=== PATIENT | female | born 1970 | race Caucasian/White ===

== ENCOUNTER 2022-06-19 10:49 | Day surgery (SDC) | payer OTHER ==
[~2022-06-19] VITALS: Ht 167.6 cm; Wt 74.1 kg
[2022-06-19 11:20] VITALS: BP 140/61
[2022-06-19] MEDS ORDERED: ESTR1TAB19 PO (11:26)
[2022-06-19] MEDS ORDERED: UBID200C32 PO (11:26)
[2022-06-19] MEDS ORDERED: NORT10CA2 PO (11:26)
[2022-06-19] MEDS ORDERED: LACT1CAP65 PO (11:26)
[2022-06-19] MEDS ORDERED: ROSU40TA22 PO (11:26)
[2022-06-19] MEDS ORDERED: CHOL20002 PO (11:26)
[2022-06-19] MEDS ORDERED: ONDA-104 PO (11:26)
[2022-06-19] MEDS ORDERED: SUMA100T16 PO (11:26)
[2022-06-19] MEDS ORDERED: vancomycin 1,500 MG in NS 300ml IV soln IV ONE (11:39)
[2022-06-19] MEDS ORDERED: ceFAZolin inj. 2,000 MG in dextrose 5%-water 100 ML IV ONE (11:39)
[2022-06-19 11:51] LABS: BASOPHILS % (AUTO) 0.3 % (0-1); EOSINOPHILS # (AUTO) 0.1 X10'3 (0-0.9); EOSINOPHILS % (AUTO) 1.2 % (0-6); HEMATOCRIT 40.5 % (35.0-45.0); HEMOGLOBIN 13.8 g/dl (12.0-16.0); LYMPHOCYTES # (AUTO) 2.2 X10'3 (1.1-4.8); MEAN CORPUSCULAR HEMOGLOBIN 29.6 PG (27.0-31.0); MEAN CORPUSCULAR HGB CONC 34.1 g/dL (33.0-36.5); MEAN CORPUSCULAR VOLUME 86.7 FL (78-98); MEAN PLATELET VOLUME 7.5 FL (7.4-10.4); MONOCYTES # (AUTO) 0.6 X10'3 (0-0.9); MONOCYTES % (AUTO) 9.7 % (2-12); NEUTROPHILS # (AUTO) 3.1 X10'3 (1.8-7.7); NEUTROPHILS % (AUTO) 51.8 % (42-75); PLATELET COUNT 237 X10'3 (140-440); RED BLOOD COUNT 4.67 X10'6 (4.20-5.60); RED CELL DISTRIBUTION WIDTH 12.4 % (11.5-14.5)
[2022-06-19 12:24] LABS: ALBUMIN 4.1 G/DL (3.4-5.0); ANION GAP 10 (8-16); BLOOD UREA NITROGEN 12 MG/DL (7-18); BUN/CREATININE RATIO 10.7 (6.6-38.0); CHLORIDE 103 MMOL/L (99-107); CREATININE 1.12 MG/DL (0.40-0.90); GLUCOSE 93 MG/DL (70-104); MAGNESIUM 2.1 MG/DL (1.5-2.4); SODIUM 140 MMOL/L (135-145); TOTAL CARBON DIOXIDE 27.1 MMOL/L (24-32); eGFR 51 ML/MIN
[2022-06-19] MEDS ORDERED: midazolam 1 mg/ML 2ml injection ONE (13:04)
[2022-06-19] MEDS ORDERED: FENTANYL CITRATE/PF 50 MCG/1 ML VIAL ONE (13:04)
[2022-06-19] MEDS ORDERED: LIDOCAINE 2%/EPI 1:100,000 inj. Multi-dose 20 ML VIAL ONE (13:18)
[2022-06-19 13:45] VITALS: BP 132/55
[2022-06-19 14:00] VITALS: BP 121/54
[2022-06-19] MEDS ORDERED: HYDROcodone/acetaminophen 5mg/325mg tablet PO PRN (14:05)
[2022-06-19] MEDS ORDERED: HYDROcodone/acetaminophen 10/325mg tab PO PRN (14:05)
[2022-06-19] MEDS ORDERED: normal saline 1000ml 1,000 ML IV SCH (14:10)
[2022-06-19 14:15] VITALS: BP 132/51
[2022-06-19 14:30] VITALS: BP 132/51
[2022-06-19 15:00] VITALS: BP 110/58
== END 2022-06-19 15:20 | disposition home or self-care (01) ==
LOC: SSTAY O 10:49
PROVIDERS: ATTEND Internal Medicine Cardiovascular Disease
DX: R42 Dizziness and giddiness (principal); E78.5 Hyperlipidemia, unspecified; Z90.710 Acquired absence of both cervix and uterus; Z88.2 Allergy status to sulfonamides; Z88.8 Allergy status to other drugs, medicaments and biological substances; Z79.01 Long term (current) use of anticoagulants; Z79.899 Other long term (current) drug therapy; Z98.890 Other specified postprocedural states; Z83.3 Family history of diabetes mellitus; Z80.1 Family history of malignant neoplasm of trachea, bronchus and lung; Z80.6 Family history of leukemia; Z82.3 Family history of stroke; Z82.49 Family history of ischemic heart disease and other diseases of the circulatory system; Z82.0 Family history of epilepsy and other diseases of the nervous system
CPT/HCPCS: 33285; 36415; 80048; 83735; 85025; 85610; 93005; 99152; C1764; J2250; J3010; J7030; 99153